=== PATIENT | female | born 1965 | race Caucasian/White ===

== ENCOUNTER 2017-10-19 13:44 | Emergency (ER) | payer MEDICARE, MEDICAID ==
[~2017-10-19] VITALS: Ht 149.9 cm; Wt 75.0 kg
[~2017-10-19 13:44] MED LIST: AMIT-189 PO; BUSP10TA11 PO; DIPH-423 PO; ESCI10TA45 PO; LORA1TAB PO; METH-603 PO; PANT-47 PO; PHE12.5T PR; PROM25TA14 PO; PROM6.25 PO
[2017-10-19] MEDS ORDERED: aspirin 81mg tab.chew PO ONE (15:05)
[2017-10-19] MEDS ORDERED: normal saline 1000ML IV soln IVB ONE ×2 (15:10)
[2017-10-19] MEDS ORDERED: ketorolac trometh. 30mg/ml inj. IV ONE (15:10)
[2017-10-19] MEDS ORDERED: metoclopramide 5 mg/ml inj IV ONE (15:10)
[2017-10-19] MEDS ORDERED: morphine 4 MG/ML inj SYRINge IV ONE (15:10)
[2017-10-19] MEDS ORDERED: diphenhydrAMINE 50 mg/ml inj IV ONE (15:10)
[2017-10-19 15:18] LABS: BASOPHILS % (AUTO) 0.4 % (0-1); EOSINOPHILS # (AUTO) 0.2 X10'3 (0-0.9); EOSINOPHILS % (AUTO) 3.4 % (0-6); HEMATOCRIT 33.8 % (35.0-45.0); HEMOGLOBIN 11.3 g/dl (12.0-16.0); LYMPHOCYTES # (AUTO) 1.5 X10'3 (1.1-4.8); LYMPHOCYTES % (AUTO) 26.9 % (21-51); MEAN CORPUSCULAR HGB CONC 33.6 % (33.0-36.5); MEAN CORPUSCULAR VOLUME 86.3 FL (78-98); MEAN PLATELET VOLUME 7.7 FL (7.4-10.4); MONOCYTES # (AUTO) 0.6 X10'3 (0-0.9); MONOCYTES % (AUTO) 10.5 % (2-12); NEUTROPHILS # (AUTO) 3.4 X10'3 (1.8-7.7); NEUTROPHILS % (AUTO) 58.8 % (42-75); PLATELET COUNT 211 X10'3 (140-440); RED BLOOD COUNT 3.92 X10'6 (4.20-5.60); RED CELL DISTRIBUTION WIDTH 14.7 % (11.5-14.5); WHITE BLOOD COUNT 5.8 X10'3 (4.5-11.0)
[2017-10-19 15:40] LABS: ALANINE AMINOTRANSFERASE 41 U/L (12-78); ALBUMIN 3.1 G/DL (3.4-5.0); ALBUMIN/GLOBULIN RATIO 0.9 (1.1-1.5); ALKALINE PHOSPHATASE 151 IU/L (46-116); ANION GAP 7 (8-16); ASPARTATE AMINO TRANSFERASE 43 U/L (10-37); BILIRUBIN,TOTAL 0.2 MG/DL (0.1-1.0); BLOOD UREA NITROGEN 8 MG/DL (7-18); CALCIUM 8.2 MG/DL (8.5-10.1); CHLORIDE 108 MMOL/L (99-107); GLUCOSE 105 MG/DL (70-104); LIPASE 136 U/L (73-393); MAGNESIUM 2.1 MG/DL (1.5-2.4); POTASSIUM 4.3 MMOL/L (3.5-5.1); SODIUM 143 MMOL/L (135-145); TOTAL CARBON DIOXIDE 27.9 MMOL/L (24-32); TOTAL PROTEIN 6.7 G/DL (6.4-8.2); eGFR > 90 ML/MIN
[2017-10-19 16:32] LABS: CLARITY,URINE CLEAR (Clear); COLOR,URINE YELLOW (Yellow); GLUCOSE, URINE NEGATIVE (Neg); KETONES,URINE NEGATIVE (Neg); LEUKOCYTE ESTERASE ,URINE NEGATIVE (Neg); NITRITES, URINE NEGATIVE (Neg); OCCULT BLOOD,URINE NEGATIVE (Neg); PROTEIN,URINE NEGATIVE (Neg); UROBILINOGEN,URINE 0.2 E.U/dL (0.2-1.0)
[2017-10-19 16:33] LABS: UA COLLECTION TYPE CLN CATCH MIDSTREAM
[2017-10-19] MEDS ORDERED: BENZ-38 PO (17:54)
[2017-10-19] MEDS ORDERED: AZIT-63 PO (17:54)
[2017-10-19] MEDS ORDERED: CefTRIAXone 2gm/D5W 50ml 50 ML IV ONE (17:55)
[2017-10-19] MEDS ORDERED: benzonatate 100mg capsule PO ONE (18:00)
[2017-10-19 18:46] VITALS: BP 139/78
== END 2017-10-19 18:49 | disposition home or self-care (01) ==
LOC: ER 13:45
DX: H66.93 Otitis media, unspecified, bilateral (principal); R10.9 Unspecified abdominal pain; E86.0 Dehydration; F17.210 Nicotine dependence, cigarettes, uncomplicated; F14.10 Cocaine abuse, uncomplicated; F11.10 Opioid abuse, uncomplicated; Z88.0 Allergy status to penicillin; Z88.8 Allergy status to other drugs, medicaments and biological substances; Z88.6 Allergy status to analgesic agent; Z88.1 Allergy status to other antibiotic agents; Z91.030 Bee allergy status
CPT/HCPCS: 36415; 71045; 80053; 81003; 83690; 83735; 83880; 84484; 85025; 87502; 87503; 93005; 96361; 96365; 96375; 99285; J0696; J1200; J1885; J2270; J2765; J7030

== ENCOUNTER 2019-10-04 15:47 | Emergency (ER) | payer MEDICARE, MEDICAID ==
[~2019-10-04] VITALS: Ht 149.9 cm; Wt 26.6 kg
[~2019-10-04 15:47] MED LIST changes: -PHE12.5T PR; +PROM12.512 PR; -PROM6.25 PO; +PROM6.256 PO
[2019-10-04 17:02] LABS: BASOPHILS # (AUTO) 0.1 X10'3 (0-0.2); BASOPHILS % (AUTO) 0.9 % (0-1); EOSINOPHILS # (AUTO) 0.2 X10'3 (0-0.9); EOSINOPHILS % (AUTO) 3.3 % (0-6); HEMATOCRIT 34.4 % (35.0-45.0); HEMOGLOBIN 11.5 g/dl (12.0-16.0); LYMPHOCYTES # (AUTO) 1.9 X10'3 (1.1-4.8); MEAN CORPUSCULAR HEMOGLOBIN 26.3 PG (27.0-31.0); MEAN CORPUSCULAR HGB CONC 33.3 g/dL (33.0-36.5); MEAN CORPUSCULAR VOLUME 78.8 FL (78-98); MEAN PLATELET VOLUME 7.9 FL (7.4-10.4); MONOCYTES # (AUTO) 0.5 X10'3 (0-0.9); MONOCYTES % (AUTO) 8.3 % (2-12); NEUTROPHILS % (AUTO) 59.5 % (42-75); PLATELET COUNT 227 X10'3 (140-440); RED BLOOD COUNT 4.36 X10'6 (4.20-5.60); WHITE BLOOD COUNT 6.6 X10'3 (4.5-11.0)
[2019-10-04 17:27] LABS: ALANINE AMINOTRANSFERASE 36 U/L (12-78); ALBUMIN 3.1 G/DL (3.4-5.0); ALBUMIN/GLOBULIN RATIO 0.8 (1.1-1.5); ALKALINE PHOSPHATASE 162 IU/L (46-116); ANION GAP 6 (8-16); ASPARTATE AMINO TRANSFERASE 24 U/L (10-37); BILIRUBIN,TOTAL 0.2 MG/DL (0.1-1.0); BLOOD UREA NITROGEN 12 MG/DL (7-18); BUN/CREATININE RATIO 21.8 (6.6-38.0); CALCIUM 8.6 MG/DL (8.5-10.1); CHLORIDE 106 MMOL/L (99-107); CREATININE 0.55 MG/DL (0.40-0.90); GLUCOSE 96 MG/DL (70-104); SODIUM 141 MMOL/L (135-145); TOTAL CARBON DIOXIDE 29.4 MMOL/L (24-32); eGFR > 90 ML/MIN
[2019-10-04 17:45] VITALS: BP 139/89
[2019-10-04] MEDS ORDERED: ALBU18HF2 INH (17:51)
== END 2019-10-04 18:02 | disposition home or self-care (01) ==
LOC: ER 15:48
DX: J44.9 Chronic obstructive pulmonary disease, unspecified (principal); F31.9 Bipolar disorder, unspecified; F14.90 Cocaine use, unspecified, uncomplicated; F11.90 Opioid use, unspecified, uncomplicated; Z90.49 Acquired absence of other specified parts of digestive tract; Z90.710 Acquired absence of both cervix and uterus; Z98.890 Other specified postprocedural states; Z56.0 Unemployment, unspecified; Z79.2 Long term (current) use of antibiotics; Z86.19 Personal history of other infectious and parasitic diseases; Z88.0 Allergy status to penicillin; Z72.0 Tobacco use; Z88.5 Allergy status to narcotic agent; Z88.8 Allergy status to other drugs, medicaments and biological substances; Z79.899 Other long term (current) drug therapy
CPT/HCPCS: 36415; 71045; 80053; 84484; 85025; 93005; 99285

== ENCOUNTER 2021-06-04 02:29 | Emergency (ER) | payer MEDICARE, MEDICAID ==
[~2021-06-04] VITALS: Ht 149.9 cm; Wt 68.2 kg
[~2021-06-04 02:29] MED LIST changes: +ALBU18HF2 INH
[2021-06-04 02:37] VITALS: BP 136/94
[2021-06-04] MEDS ORDERED: pantoprazole 40mg Tablet.DR PO STA (03:40)
[2021-06-04 04:39] LABS: BASOPHILS % (AUTO) 0.2 % (0-1); EOSINOPHILS # (AUTO) 0.2 X10'3 (0-0.9); EOSINOPHILS % (AUTO) 3.3 % (0-6); HEMATOCRIT 37.3 % (35.0-45.0); HEMOGLOBIN 12.3 g/dl (12.0-16.0); LYMPHOCYTES # (AUTO) 1.8 X10'3 (1.1-4.8); LYMPHOCYTES % (AUTO) 27.7 % (21-51); MEAN CORPUSCULAR HEMOGLOBIN 27.4 PG (27.0-31.0); MEAN CORPUSCULAR HGB CONC 32.9 g/dL (33.0-36.5); MEAN CORPUSCULAR VOLUME 83.4 FL (78-98); MEAN PLATELET VOLUME 7.5 FL (7.4-10.4); MONOCYTES # (AUTO) 0.6 X10'3 (0-0.9); MONOCYTES % (AUTO) 9.7 % (2-12); NEUTROPHILS # (AUTO) 3.9 X10'3 (1.8-7.7); NEUTROPHILS % (AUTO) 59.1 % (42-75); PLATELET COUNT 259 X10'3 (140-440); RED BLOOD COUNT 4.48 X10'6 (4.20-5.60); RED CELL DISTRIBUTION WIDTH 14.7 % (11.5-14.5); WHITE BLOOD COUNT 6.5 X10'3 (4.5-11.0)
[2021-06-04 04:49] LABS: PARTIAL THROMBOPLASTIN TIME 28 SECONDS (22-32)
[2021-06-04 04:50] LABS: ALANINE AMINOTRANSFERASE 31 U/L (12-78); ALBUMIN 3.4 G/DL (3.4-5.0); ALBUMIN/GLOBULIN RATIO 0.9 (1.1-1.5); ALKALINE PHOSPHATASE 141 IU/L (46-116); ANION GAP 8 (8-16); ASPARTATE AMINO TRANSFERASE 22 U/L (10-37); BILIRUBIN,DIRECT 0.1 MG/DL (0-0.3); BILIRUBIN,TOTAL 0.2 MG/DL (0.1-1.0); BLOOD UREA NITROGEN 14 MG/DL (7-18); BUN/CREATININE RATIO 20.3 (6.6-38.0); CALCIUM 8.7 MG/DL (8.5-10.1); CHLORIDE 106 MMOL/L (99-107); CREATININE 0.69 MG/DL (0.40-0.90); GLUCOSE 103 MG/DL (70-104); LIPASE 76 U/L (73-393); POTASSIUM 4.2 MMOL/L (3.5-5.1); SODIUM 141 MMOL/L (135-145); TOTAL CARBON DIOXIDE 26.6 MMOL/L (24-32); TOTAL PROTEIN 7.3 G/DL (6.4-8.2); eGFR 88 ML/MIN
== END 2021-06-04 07:43 | disposition left against medical advice (07) ==
LOC: ER 02:31
DX: R04.2 Hemoptysis (principal); M54.2 Cervicalgia; F31.9 Bipolar disorder, unspecified; F11.90 Opioid use, unspecified, uncomplicated; F14.90 Cocaine use, unspecified, uncomplicated; Z86.19 Personal history of other infectious and parasitic diseases; Z87.11 Personal history of peptic ulcer disease; Z90.89 Acquired absence of other organs; Z90.49 Acquired absence of other specified parts of digestive tract; Z90.710 Acquired absence of both cervix and uterus; Z98.890 Other specified postprocedural states; Z56.0 Unemployment, unspecified; Z88.1 Allergy status to other antibiotic agents; Z88.0 Allergy status to penicillin; Z88.2 Allergy status to sulfonamides; Z88.5 Allergy status to narcotic agent; Z88.8 Allergy status to other drugs, medicaments and biological substances; Z79.899 Other long term (current) drug therapy
CPT/HCPCS: 36415; 80048; 80076; 83690; 85025; 85610; 85730; 99283

== ENCOUNTER 2021-06-06 11:20 | Emergency (ER) | payer MEDICARE, MEDICAID ==
[~2021-06-06] VITALS: Ht 149.9 cm; Wt 70.5 kg
[2021-06-06] MEDS ORDERED: metoprolol tartrate 50mg tablet PO ONE (12:10)
[2021-06-06 12:37] LABS: BASOPHILS % (AUTO) 0.4 % (0-1); EOSINOPHILS # (AUTO) 0.1 X10'3 (0-0.9); EOSINOPHILS % (AUTO) 1.6 % (0-6); HEMATOCRIT 38.9 % (35.0-45.0); HEMOGLOBIN 12.8 g/dl (12.0-16.0); LYMPHOCYTES % (AUTO) 13.7 % (21-51); MEAN CORPUSCULAR HEMOGLOBIN 27.3 PG (27.0-31.0); MEAN CORPUSCULAR VOLUME 82.8 FL (78-98); MEAN PLATELET VOLUME 7.3 FL (7.4-10.4); MONOCYTES # (AUTO) 0.5 X10'3 (0-0.9); MONOCYTES % (AUTO) 7.3 % (2-12); NEUTROPHILS # (AUTO) 5.7 X10'3 (1.8-7.7); PLATELET COUNT 254 X10'3 (140-440); RED CELL DISTRIBUTION WIDTH 14.5 % (11.5-14.5); WHITE BLOOD COUNT 7.4 X10'3 (4.5-11.0)
[2021-06-06 12:48] LABS: ALANINE AMINOTRANSFERASE 32 U/L (12-78); ALBUMIN 3.6 G/DL (3.4-5.0); ALBUMIN/GLOBULIN RATIO 0.9 (1.1-1.5); ALKALINE PHOSPHATASE 156 IU/L (46-116); ANION GAP 8 (8-16); BILIRUBIN,TOTAL 0.2 MG/DL (0.1-1.0); BLOOD UREA NITROGEN 17 MG/DL (7-18); BUN/CREATININE RATIO 25.8 (6.6-38.0); CALCIUM 8.5 MG/DL (8.5-10.1); CHLORIDE 107 MMOL/L (99-107); CREATININE 0.66 MG/DL (0.40-0.90); GLUCOSE 130 MG/DL (70-104); POTASSIUM 4.2 MMOL/L (3.5-5.1); SODIUM 142 MMOL/L (135-145); TOTAL CARBON DIOXIDE 26.8 MMOL/L (24-32); TOTAL PROTEIN 7.8 G/DL (6.4-8.2); eGFR > 90 ML/MIN
[2021-06-06 12:49] LABS: ASPARTATE AMINO TRANSFERASE 19 U/L (10-37)
[2021-06-06 12:59] LABS: ETHANOL < 0.010 GM/DL (0.0-0.010)
[2021-06-06 15:01] VITALS: BP 129/81
== END 2021-06-06 15:09 | disposition home or self-care (01) ==
LOC: ER 11:21
DX: I10 Essential (primary) hypertension (principal); R20.0 Anesthesia of skin
CPT/HCPCS: 36415; 71045; 80053; 80320; 83880; 84484; 85025; 93005; 99285

== ENCOUNTER 2021-06-29 11:38 | Emergency (ER) | payer MEDICARE, MEDICAID ==
[~2021-06-29] VITALS: Ht 149.9 cm; Wt 65.0 kg
[2021-06-29 12:27] LABS: BASOPHILS % (AUTO) 0.5 % (0-1); EOSINOPHILS # (AUTO) 0.2 X10'3 (0-0.9); EOSINOPHILS % (AUTO) 3.4 % (0-6); LYMPHOCYTES # (AUTO) 1.7 X10'3 (1.1-4.8); LYMPHOCYTES % (AUTO) 26.3 % (21-51); MEAN CORPUSCULAR HEMOGLOBIN 27.2 PG (27.0-31.0); MEAN CORPUSCULAR HGB CONC 32.5 g/dL (33.0-36.5); MEAN CORPUSCULAR VOLUME 83.9 FL (78-98); MEAN PLATELET VOLUME 7.2 FL (7.4-10.4); MONOCYTES # (AUTO) 0.6 X10'3 (0-0.9); MONOCYTES % (AUTO) 8.7 % (2-12); NEUTROPHILS # (AUTO) 3.9 X10'3 (1.8-7.7); NEUTROPHILS % (AUTO) 61.1 % (42-75); PLATELET COUNT 274 X10'3 (140-440); RED BLOOD COUNT 4.41 X10'6 (4.20-5.60); RED CELL DISTRIBUTION WIDTH 15.6 % (11.5-14.5); WHITE BLOOD COUNT 6.4 X10'3 (4.5-11.0)
[2021-06-29 12:43] LABS: ALANINE AMINOTRANSFERASE 28 U/L (12-78); ALBUMIN 3.5 G/DL (3.4-5.0); ALBUMIN/GLOBULIN RATIO 0.9 (1.1-1.5); ALKALINE PHOSPHATASE 123 IU/L (46-116); ANION GAP 10 (8-16); ASPARTATE AMINO TRANSFERASE 21 U/L (10-37); BILIRUBIN,TOTAL 0.2 MG/DL (0.1-1.0); BLOOD UREA NITROGEN 9 MG/DL (7-18); BUN/CREATININE RATIO 14.1 (6.6-38.0); CALCIUM 8.6 MG/DL (8.5-10.1); CHLORIDE 106 MMOL/L (99-107); CREATININE 0.64 MG/DL (0.40-0.90); GLUCOSE 109 MG/DL (70-104); POTASSIUM 3.5 MMOL/L (3.5-5.1); SODIUM 144 MMOL/L (135-145); TOTAL CARBON DIOXIDE 28.5 MMOL/L (24-32); TOTAL PROTEIN 7.4 G/DL (6.4-8.2); eGFR > 90 ML/MIN
[2021-06-29] MEDS ORDERED: ibuprofen tablet 400 MG TABLET PO ONE (14:25)
[2021-06-29 14:58] VITALS: BP 125/77
== END 2021-06-29 15:06 | disposition home or self-care (01) ==
LOC: ER 11:38
DX: R03.0 Elevated blood-pressure reading, without diagnosis of hypertension (principal); R51.9 Headache, unspecified; R11.0 Nausea; Z86.19 Personal history of other infectious and parasitic diseases; Z87.11 Personal history of peptic ulcer disease; Z90.49 Acquired absence of other specified parts of digestive tract; Z90.710 Acquired absence of both cervix and uterus; Z56.0 Unemployment, unspecified; Z88.0 Allergy status to penicillin; Z88.1 Allergy status to other antibiotic agents; Z88.2 Allergy status to sulfonamides; Z88.6 Allergy status to analgesic agent; Z79.899 Other long term (current) drug therapy
CPT/HCPCS: 36415; 70450; 71045; 80053; 83880; 84484; 85025; 93005; 99285

== ENCOUNTER 2022-01-25 21:10 | Inpatient (IN) | payer MEDICARE, MEDICAID ==
[~2022-01-25] VITALS: Ht 149.9 cm; Wt 75.0 kg
[2022-01-25 21:48] LABS: BASOPHILS % (AUTO) 0.4 % (0-1); EOSINOPHILS # (AUTO) 0.2 X10'3 (0-0.9); EOSINOPHILS % (AUTO) 1.6 % (0-6); HEMATOCRIT 35.3 % (35.0-45.0); HEMOGLOBIN 11.2 g/dl (12.0-16.0); LYMPHOCYTES # (AUTO) 1.8 X10'3 (1.1-4.8); LYMPHOCYTES % (AUTO) 18.8 % (21-51); MEAN CORPUSCULAR HEMOGLOBIN 24.8 PG (27.0-31.0); MEAN CORPUSCULAR HGB CONC 31.8 g/dL (33.0-36.5); MEAN CORPUSCULAR VOLUME 77.9 FL (78-98); MEAN PLATELET VOLUME 7.8 FL (7.4-10.4); MONOCYTES # (AUTO) 0.9 X10'3 (0-0.9); MONOCYTES % (AUTO) 9.4 % (2-12); NEUTROPHILS # (AUTO) 6.7 X10'3 (1.8-7.7); NEUTROPHILS % (AUTO) 69.8 % (42-75); PLATELET COUNT 324 X10'3 (140-440); RED BLOOD COUNT 4.53 X10'6 (4.20-5.60); WHITE BLOOD COUNT 9.6 X10'3 (4.5-11.0)
[2022-01-25 21:58] LABS: ALANINE AMINOTRANSFERASE 23 U/L (12-78); ALBUMIN 3.5 G/DL (3.4-5.0); ALBUMIN/GLOBULIN RATIO 0.8 (1.1-1.5); ALKALINE PHOSPHATASE 162 IU/L (46-116); ANION GAP 10 (8-16); ASPARTATE AMINO TRANSFERASE 19 U/L (10-37); BILIRUBIN,TOTAL 0.3 MG/DL (0.1-1.0); BLOOD UREA NITROGEN 11 MG/DL (7-18); BUN/CREATININE RATIO 15.9 (6.6-38.0); CALCIUM 8.4 MG/DL (8.5-10.1); CHLORIDE 102 MMOL/L (99-107); CREATININE 0.69 MG/DL (0.40-0.90); GLUCOSE 92 MG/DL (70-104); LIPASE < 50 U/L (73-393); POTASSIUM 3.1 MMOL/L (3.5-5.1); SODIUM 138 MMOL/L (135-145); TOTAL CARBON DIOXIDE 26.1 MMOL/L (24-32); TOTAL PROTEIN 7.9 G/DL (6.4-8.2); eGFR 88 ML/MIN
[2022-01-25 22:58] LABS: CLARITY,URINE CLEAR (Clear); COLOR,URINE YELLOW (Yellow); GLUCOSE, URINE NEGATIVE (Neg); KETONES,URINE TRACE mg/dl (Neg); LEUKOCYTE ESTERASE ,URINE NEGATIVE (Neg); NITRITES, URINE NEGATIVE (Neg); OCCULT BLOOD,URINE TRACE-INTACT (Neg); PROTEIN,URINE NEGATIVE (Neg); UROBILINOGEN,URINE 0.2 E.U/dL (0.2-1.0)
[2022-01-25 23:01] LABS: URINE HCG NEGATIVE (NEG)
[2022-01-25 23:05] LABS: UA COLLECTION TYPE CLN CATCH MIDSTREAM
[2022-01-25 23:07] LABS: BACTERIA,URINE FEW /HPF (Neg); RBC,URINE 0-2 /HPF (0-2); SQUAMOUS EPITHELIAL CELL,UR FEW /LPF (FEW); WBC,URINE NONE SEEN /HPF (0-4)
[2022-01-25] MEDS ORDERED: normal saline 1000ML IV soln IVB ONE (23:25)
[2022-01-25] MEDS ORDERED: LORazepam 2 mg/ml vial IV ONE (23:25)
[2022-01-25] MEDS ORDERED: ondansetron/PF 4mg/2ml inj IV ONE (23:25)
[2022-01-25] MEDS ORDERED: pantoprazole IV 80 MG in normal saline 100ml IV soln 100 ML IV ONE (23:25)
[2022-01-25] MEDS ORDERED: morphine 4 MG/ML inj SYRINge IV ONE (23:25)
[2022-01-25] MEDS ORDERED: iohexol 300mg/ml 100ml inj. ONE (23:49)
--- NOTE | 2022-01-26 | NUR ---
pt states she sleeps with oxygen 2 L NC at home. pt placed on 2L O2 nc.
[2022-01-26] MEDS: morphine 2 MG/ML inj. syringe IV PRN ×5 (00:08→03:14)
[2022-01-26] MEDS ORDERED: potassium CL 10mEq/100ml bag 100 ML IV PRN (02:05)
[2022-01-26] MEDS ORDERED: magnesium Cl slow-release 64mg tablet PO PRN (02:05)
[2022-01-26] MEDS ORDERED: acetaminophen 650mg rectal suppository RC PRN (02:05)
[2022-01-26] MEDS ORDERED: magnesium 2GM in 50ml NS 50 ML IV PRN (02:05)
[2022-01-26] MEDS ORDERED: diphenhydrAMINE 50 mg/ml inj IV PRN (02:05)
[2022-01-26] MEDS ORDERED: ondansetron 4mg rapidly disintigrating tab PO PRN ×2 (02:05→14:10)
[2022-01-26] MEDS ORDERED: magnesium hydroxide 30ml (MOM) UD suspension PO PRN (02:05)
[2022-01-26] MEDS ORDERED: diphenhydrAMINE 25mg capsule PO PRN ×2 (02:05→14:10)
[2022-01-26] MEDS ORDERED: magnesium 4gm in 100ml NS 100 ML IV PRN (02:05)
[2022-01-26] MEDS ORDERED: acetaminophen 325mg tablet PO PRN ×2 (02:05)
[2022-01-26] MEDS ORDERED: POTASSIUM BICARB 20meq eff tab 20 MEQ TABLET.EFF PO PRN (02:05)
[2022-01-26] MEDS ORDERED: mag hydrox/Alum hydrox/simeth 30ml oral suspension PO PRN (02:05)
[2022-01-26] MEDS ORDERED: bisacodyl 10mg suppository rectal RC PRN (02:05)
[2022-01-26] MEDS: ondansetron/PF 4mg/2ml inj IV PRN ×3 (02:49→19:35)
[2022-01-26] MEDS ORDERED: doxycycline inj 100 MG in normal saline 100ml IV soln 100 ML IV SCH (03:00)
[2022-01-26 03:05] LABS: MAGNESIUM 1.8 MG/DL (1.5-2.4); PHOSPHORUS 3.9 MG/DL (2.3-4.5); POTASSIUM 3.2 MMOL/L (3.5-5.1)
--- NOTE | 2022-01-26 03:25 | NUR ---
SPOKE TO DR NAIK OVER THE PHONE PT IS STILL NAUSEATED WITH ZOFRAN. DR NAIK GAVE A TELEPHONE ORDER FOR 8 MG ZOFRAN IV NOW; IF THIS INTERVENTION IS INEFFECTIVE, HE GIVE TELEPHONE ORDER FOR 1 MG ATIVAN IV. ORDER REPEATED BACK FOR ACCURACY.
[2022-01-26] MEDS ORDERED: ondansetron/PF 4mg/2ml inj IV ONE (03:30)
[2022-01-26 04:07] LABS: APTT 26 SECONDS (22-32)
[2022-01-26] MEDS: potassium Cl 20mEq in NS 1,000 ML IV SCH ×3 (04:29→20:36)
[2022-01-26] MEDS: HYDROmorphone inj. 0.5 MG/0.5 ML DISP.SYRIN IV PRN ×4 (05:31→20:32)
[2022-01-26] MEDS: K and/or MAG REPLACEMENT MC SCH ×2 (07:14→20:00)
[2022-01-26] MEDS ORDERED: docusate sod 100mg capsule PO SCH (08:00)
[2022-01-26] MEDS: POTASSIUM BICARB 20meq eff tab 20 MEQ TABLET.EFF PO PRN ×2 (08:30→20:18)
[2022-01-26] MEDS: pantoprazole 40MG/NS 100ML BAG 100 ML IV SCH (09:54)
[2022-01-26] MEDS ORDERED: GABA-530 PO (13:11)
[2022-01-26] MEDS ORDERED: ATRIN PO (13:11)
[2022-01-26] MEDS ORDERED: LORA-268 PO (13:11)
[2022-01-26] MEDS ORDERED: IBUP-1986 PO (13:11)
[2022-01-26] MEDS ORDERED: OMEP20CA16 PO (13:11)
[2022-01-26] MEDS ORDERED: HYDR-3973 PO (13:11)
[2022-01-26] MEDS ORDERED: FLUT15.87 NAS (13:11)
[2022-01-26] MEDS ORDERED: BUSP30TA3 PO (13:11)
[2022-01-26] MEDS ORDERED: ONDA4TAB12 PO (13:11)
[2022-01-26] MEDS ORDERED: AMIT10TA6 PO (13:11)
[2022-01-26] MEDS ORDERED: ATOR10TA70 PO (13:11)
[2022-01-26] MEDS ORDERED: DOCU100C40 PO (13:13)
[2022-01-26] MEDS ORDERED: CLON0.2T PO (13:24)
[2022-01-26] MEDS ORDERED: ESTR1TAB19 PO (13:24)
[2022-01-26] MEDS ORDERED: ESCI20TA39 PO (13:30)
[2022-01-26] MEDS ORDERED: insulin Lispro (HumaLOG) vial - multi-dose SQ SCH (14:10)
[2022-01-26] MEDS ORDERED: dextrose 50%-water 50ml dispensing syringe IV PRN ×2 (14:10)
[2022-01-26] MEDS ORDERED: MESSAGE TO PHARMACY PO ONE (14:10)
[2022-01-26] MEDS ORDERED: fluticasone nasal spray 16GM bottle NS PRN (14:10)
[2022-01-26] MEDS ORDERED: proMETHazine 25mg tablet PO PRN (14:10)
[2022-01-26] MEDS ORDERED: hydrALAZINE 20mg/ml inj. IV PRN (14:10)
[2022-01-26] MEDS ORDERED: proCHLORperazine 10 MG/2 ml inj IV PRN (14:10)
[2022-01-26] MEDS ORDERED: DEXTROSE 15 GM of carb/4 tabs (each vial/BOTTLE has 4 tablets) PO PRN ×2 (14:10)
[2022-01-26] MEDS ORDERED: glucagon, human recombinant 1mg kit SUBCUT PRN (14:10)
[2022-01-26 15:14] VITALS: BP 150/97
--- NOTE | 2022-01-26 15:15 | NUR ---
Received pt from ED. Pt holding in unit until bed available on [facility].
--- NOTE | 2022-01-26 15:46 | NUR ---
Respiratory at bedside.
[2022-01-26] MEDS: ipratropium 0.5 MG/2.5ML nebule NEB SCH ×2 (15:47→19:55)
--- NOTE | 2022-01-26 16:15 | NUR ---
DC right AC IV, cannula intact. No s/s of bleeding or infection.
--- NOTE | 2022-01-26 17:44 | NUR ---
Attempted to call report, Saba refused to take report. States that she will have night clerk nurse call me back for report. Addendum: 01/26/22 at 1844 by Bina Gallegos RN Saba Kinney RN
[2022-01-26] MEDS: methadone 10mg tablet PO SCH ×2 (18:10→22:47)
--- NOTE | 2022-01-26 18:20 | NUR ---
Problems reprioritized. Patient report given, questions answered & plan of care reviewed with Lorrie NUNEZ.
[2022-01-26 19:56] VITALS: BP 181/80
[2022-01-26] MEDS: doxycycline inj 100 MG in normal saline 100ml IV soln 100 ML IV SCH (20:14)
[2022-01-26] MEDS: docusate sod 100mg capsule PO SCH (20:17)
[2022-01-26] MEDS: amitriptyline 10mg tablet PO SCH (20:17)
[2022-01-26] MEDS: cloNIDine 0.1 mg tablet PO SCH (20:17)
[2022-01-26] MEDS: ibuprofen tablet 400 MG TABLET PO SCH (20:18)
[2022-01-26] MEDS: insulin glargine (Lantus) pen - multi-dose SQ SCH (20:35)
[2022-01-26] MEDS ORDERED: temazepam 15mg capsule PO PRN (21:00)
[2022-01-26 22:00] VITALS: BP 121/82
[2022-01-27 02:00] VITALS: BP 101/59
--- NOTE | 2022-01-27 06:09 | NUR ---
Problems reprioritized. Patient report given, questions answered & plan of care reviewed with Vlad NUNEZ. Addendum: 01/27/22 at 0609 by Lorrie Sequeira RN Amended: Links added.
[2022-01-27] MEDS: ipratropium 0.5 MG/2.5ML nebule NEB SCH ×4 (07:11→19:07)
[2022-01-27] MEDS: ondansetron/PF 4mg/2ml inj IV PRN ×2 (07:25→16:49)
[2022-01-27] MEDS: pantoprazole 40MG/NS 100ML BAG 100 ML IV SCH (07:25)
[2022-01-27] MEDS: ESCITALOPRAM OXALATE 5 MG TABLET PO SCH (07:25)
[2022-01-27] MEDS: ibuprofen tablet 400 MG TABLET PO SCH ×3 (07:26→20:36)
[2022-01-27] MEDS: cloNIDine 0.1 mg tablet PO SCH ×2 (07:26→19:29)
[2022-01-27] MEDS: HYDROcodone/acetaminophen 10/325mg tab PO PRN ×3 (07:26→19:32)
[2022-01-27] MEDS: methadone 10mg tablet PO SCH ×4 (07:27→20:36)
[2022-01-27] MEDS: atorvastatin 10mg tablet PO SCH (07:27)
[2022-01-27] MEDS: docusate sod 100mg capsule PO SCH ×2 (07:27→19:29)
[2022-01-27] MEDS: pantoprazole 40mg Tablet.DR PO SCH (07:27)
[2022-01-27] MEDS: estradiol 1mg tablet PO SCH (07:28)
[2022-01-27] MEDS: doxycycline inj 100 MG in normal saline 100ml IV soln 100 ML IV SCH ×2 (07:28→19:29)
[2022-01-27] MEDS: busPIRone 15mg tablet PO SCH (07:28)
--- NOTE | 2022-01-27 07:30 | NUR ---
Diabetes consult: Noted A1c 7 though pt does not appear to have any DM hx in EMR. Pt will need official dx by prior to RD education. Addendum: 01/27/22 at [address] Amended: Links added.
[2022-01-27 07:41] LABS: BASOPHILS % (AUTO) 0.4 % (0-1); EOSINOPHILS # (AUTO) 0.2 X10'3 (0-0.9); EOSINOPHILS % (AUTO) 2.8 % (0-6); HEMATOCRIT 29.5 % (35.0-45.0); HEMOGLOBIN 9.4 g/dl (12.0-16.0); LYMPHOCYTES # (AUTO) 1.5 X10'3 (1.1-4.8); LYMPHOCYTES % (AUTO) 19.7 % (21-51); MEAN CORPUSCULAR HEMOGLOBIN 25.1 PG (27.0-31.0); MEAN CORPUSCULAR VOLUME 78.5 FL (78-98); MEAN PLATELET VOLUME 7.6 FL (7.4-10.4); MONOCYTES # (AUTO) 0.9 X10'3 (0-0.9); MONOCYTES % (AUTO) 11.6 % (2-12); NEUTROPHILS # (AUTO) 4.9 X10'3 (1.8-7.7); NEUTROPHILS % (AUTO) 65.5 % (42-75); PLATELET COUNT 255 X10'3 (140-440); RED BLOOD COUNT 3.75 X10'6 (4.20-5.60); RED CELL DISTRIBUTION WIDTH 15.8 % (11.5-14.5); WHITE BLOOD COUNT 7.5 X10'3 (4.5-11.0)
--- NOTE | 2022-01-27 07:49 | NUR ---
Page Sent promotional table spacer PAGER ID: [phone] MESSAGE: [place] JOSSY [place] [id number] CRITICAL BLOOD GLUCOSE OF 45 CONSIDER A CHANGE IN FLUID ORDERS? THANK YOU, JONELLE
[2022-01-27 07:56] LABS: ALANINE AMINOTRANSFERASE 22 U/L (12-78); ALBUMIN 2.5 G/DL (3.4-5.0); ALBUMIN/GLOBULIN RATIO 0.7 (1.1-1.5); ALKALINE PHOSPHATASE 140 IU/L (46-116); ANION GAP 9 (8-16); ASPARTATE AMINO TRANSFERASE 19 U/L (10-37); BILIRUBIN,TOTAL 0.3 MG/DL (0.1-1.0); BLOOD UREA NITROGEN 11 MG/DL (7-18); BUN/CREATININE RATIO 22.9 (6.6-38.0); CHLORIDE 109 MMOL/L (99-107); CREATININE 0.48 MG/DL (0.40-0.90); GLUCOSE 55 MG/DL (70-104); POTASSIUM 3.8 MMOL/L (3.5-5.1); SODIUM 142 MMOL/L (135-145); TOTAL CARBON DIOXIDE 24.1 MMOL/L (24-32); TOTAL PROTEIN 6.2 G/DL (6.4-8.2); eGFR > 90 ML/MIN
[2022-01-27] MEDS: K and/or MAG REPLACEMENT MC SCH ×2 (08:00→19:36)
[2022-01-27] MEDS: potassium Cl 20mEq in NS 1,000 ML IV SCH (08:05)
[2022-01-27] MEDS: LORazepam 0.5 MG tablet PO PRN ×2 (09:09→21:35)
[2022-01-27] MEDS: potassium CL 20mEq in D5-1/2NS 1,000 ML IV SCH ×2 (09:43→19:32)
[2022-01-27 10:00] VITALS: BP 148/94
[2022-01-27 19:00] VITALS: BP 114/63
[2022-01-27] MEDS: amitriptyline 10mg tablet PO SCH (20:36)
[2022-01-27] MEDS: insulin glargine (Lantus) pen - multi-dose SQ SCH (21:00)
[2022-01-27 22:00] VITALS: BP 143/54
[2022-01-27] MEDS: HYDROmorphone inj. 0.5 MG/0.5 ML DISP.SYRIN IV PRN (22:56)
[2022-01-28] MEDS: potassium CL 20mEq in D5-1/2NS 1,000 ML IV SCH ×2 (05:15→14:20)
[2022-01-28] MEDS: HYDROmorphone inj. 0.5 MG/0.5 ML DISP.SYRIN IV PRN (05:52)
[2022-01-28 06:00] VITALS: BP 128/80
--- NOTE | 2022-01-28 06:41 | NUR ---
Patient in room [facility]TH[facility] 4013. I have received report from Lorrie NUNEZ and had the opportunity to ask questions and assume patient care.
[2022-01-28] MEDS: ipratropium 0.5 MG/2.5ML nebule NEB SCH ×2 (07:00→11:49)
[2022-01-28] MEDS: atorvastatin 10mg tablet PO SCH (07:17)
[2022-01-28] MEDS: ESCITALOPRAM OXALATE 5 MG TABLET PO SCH (07:17)
[2022-01-28] MEDS: ibuprofen tablet 400 MG TABLET PO SCH ×2 (07:17→12:11)
[2022-01-28] MEDS: pantoprazole 40mg Tablet.DR PO SCH (07:17)
[2022-01-28] MEDS: methadone 10mg tablet PO SCH ×2 (07:18→12:11)
[2022-01-28] MEDS: estradiol 1mg tablet PO SCH (07:18)
[2022-01-28] MEDS: docusate sod 100mg capsule PO SCH (07:18)
[2022-01-28] MEDS: busPIRone 15mg tablet PO SCH (07:18)
[2022-01-28] MEDS: cloNIDine 0.1 mg tablet PO SCH (07:20)
[2022-01-28] MEDS: HYDROcodone/acetaminophen 10/325mg tab PO PRN (07:30)
[2022-01-28 07:58] LABS: BASOPHILS % (AUTO) 0.5 % (0-1); EOSINOPHILS # (AUTO) 0.3 X10'3 (0-0.9); HEMATOCRIT 30.1 % (35.0-45.0); HEMOGLOBIN 9.8 g/dl (12.0-16.0); LYMPHOCYTES # (AUTO) 1.2 X10'3 (1.1-4.8); LYMPHOCYTES % (AUTO) 14.1 % (21-51); MEAN CORPUSCULAR HEMOGLOBIN 25.4 PG (27.0-31.0); MEAN CORPUSCULAR HGB CONC 32.4 g/dL (33.0-36.5); MEAN CORPUSCULAR VOLUME 78.5 FL (78-98); MEAN PLATELET VOLUME 7.7 FL (7.4-10.4); MONOCYTES # (AUTO) 0.9 X10'3 (0-0.9); MONOCYTES % (AUTO) 11.6 % (2-12); NEUTROPHILS # (AUTO) 5.7 X10'3 (1.8-7.7); NEUTROPHILS % (AUTO) 69.8 % (42-75); PLATELET COUNT 266 X10'3 (140-440); RED BLOOD COUNT 3.84 X10'6 (4.20-5.60); RED CELL DISTRIBUTION WIDTH 15.8 % (11.5-14.5); WHITE BLOOD COUNT 8.2 X10'3 (4.5-11.0)
[2022-01-28] MEDS: K and/or MAG REPLACEMENT MC SCH (08:00)
[2022-01-28] MEDS: pantoprazole 40MG/NS 100ML BAG 100 ML IV SCH (08:19)
[2022-01-28 08:55] LABS: ALANINE AMINOTRANSFERASE 25 U/L (12-78); ALBUMIN 2.5 G/DL (3.4-5.0); ALBUMIN/GLOBULIN RATIO 0.6 (1.1-1.5); ALKALINE PHOSPHATASE 158 IU/L (46-116); AMYLASE 18 U/L (25-115); ANION GAP 9 (8-16); ASPARTATE AMINO TRANSFERASE 25 U/L (10-37); BILIRUBIN,TOTAL 0.2 MG/DL (0.1-1.0); BLOOD UREA NITROGEN 8 MG/DL (7-18); CALCIUM 8.2 MG/DL (8.5-10.1); CHLORIDE 108 MMOL/L (99-107); CREATININE 0.47 MG/DL (0.40-0.90); FERRITIN 37 NG/ML (8-252); GLUCOSE 111 MG/DL (70-104); LIPASE 57 U/L (73-393); POTASSIUM 3.9 MMOL/L (3.5-5.1); SODIUM 140 MMOL/L (135-145); TOTAL CARBON DIOXIDE 23.5 MMOL/L (24-32); TOTAL PROTEIN 6.5 G/DL (6.4-8.2); eGFR > 90 ML/MIN
[2022-01-28] MEDS: doxycycline inj 100 MG in normal saline 100ml IV soln 100 ML IV SCH (08:57)
[2022-01-28 09:28] LABS: IRON 27 UG/DL (49-151)
[2022-01-28 09:29] LABS: % IRON SATURATION 10 % (11-46); TOTAL IRON BINDING CAPACITY 273 UG/DL (259-388)
[2022-01-28 10:00] VITALS: BP 124/71
[2022-01-28 11:44] LABS: OCCULT BLOOD STOOL POSITIVE (Neg)
[2022-01-28] MEDS ORDERED: LACT1CAP26 PO (12:20)
[2022-01-28] MEDS ORDERED: DOXY-243 PO (12:20)
[2022-01-28] MEDS ORDERED: METR-159 PO (12:20)
--- NOTE | 2022-01-28 15:16 | NUR ---
Patient discharged home with friend. Discharge information was provided to patient who verbalized understanding. Staff assist patient to vehicle with all belonging.
--- NOTE | 2022-01-28 17:30 | NUR ---
MANAGER STRATEGIC DEVELOPMENT documentation: I have reviewed and agree with all interventions, assessments performed and documented by Erica Kelly LVN.
[2022-01-31] MEDS ORDERED: DICY20TA17 PO (17:55)
== END 2022-01-28 15:05 | disposition home health service (06) | DRG 386 ==
LOC: ER 21:12 → ED HOLD 01-26 02:08 → ORTHO 4S 01-26 18:20
PROVIDERS: ADMIT Family Medicine; ATTEND Internal Medicine
DX: K51.50 Left sided colitis without complications (principal); J96.10 Chronic respiratory failure, unspecified whether with hypoxia or hypercapnia; K86.1 Other chronic pancreatitis; B19.20 Unspecified viral hepatitis C without hepatic coma; E87.6 Hypokalemia; E86.0 Dehydration; R82.4 Acetonuria; G89.4 Chronic pain syndrome; I10 Essential (primary) hypertension; E16.2 Hypoglycemia, unspecified; D64.9 Anemia, unspecified; F17.210 Nicotine dependence, cigarettes, uncomplicated; F31.9 Bipolar disorder, unspecified; J44.9 Chronic obstructive pulmonary disease, unspecified; Z88.5 Allergy status to narcotic agent; Z88.8 Allergy status to other drugs, medicaments and biological substances; Z88.2 Allergy status to sulfonamides; Z90.49 Acquired absence of other specified parts of digestive tract; Z90.710 Acquired absence of both cervix and uterus; Z56.0 Unemployment, unspecified; Z99.81 Dependence on supplemental oxygen; Z79.899 Other long term (current) drug therapy; Z87.11 Personal history of peptic ulcer disease; Z71.6 Tobacco abuse counseling; Z76.5 Malingerer [conscious simulation]
CPT/HCPCS: 36415; 74177; 80053; 81001; 81025; 82150; 82272; 82607; 82728; 82948; 83036; 83540; 83550; 83605; 83690; 83735; 83880; 84100; 84132; 84443; 85025; 85610; 85730; 87040; 87081; 94640; 94760; 99285; A4615; C9113; G0378; J0780; J1170; J1815; J2060; J2270; J2405; J3480; J3490; J7030; J7120; Q9967

== ENCOUNTER 2022-12-25 18:32 | Emergency (ER) | payer MEDICARE, MEDICAID ==
[~2022-12-25] VITALS: Ht 149.9 cm; Wt 71.2 kg
[~2022-12-25 18:32] MED LIST changes: -ALBU18HF2 INH; +ALBU18HF2 PO; -AMIT-189 PO; +AMIT10TA6 PO; +ATRIN PO; -BUSP10TA11 PO; +BUSP30TA2 PO; +CLON0.2T PO; +CLOT30CR19 TP; +DICY20TA17 PO; +DOCU100C40 PO; -ESCI10TA45 PO; +ESCI20TA39 PO; +ESTR1TAB19 PO; +FLUT12AE5 PO; +FLUT15.87 NAS; +HYDR-3973 PO; +IBUP-1986 PO; +LACT1CAP26 PO; +LIPA1CAP18 PO; +LORA-268 PO; -LORA1TAB PO; +NYST30CR34 TOP; +OMEP20CA16 PO; -PANT-47 PO; -PROM12.512 PR; -PROM6.256 PO
[2022-12-25 19:03] LABS: URINE HCG NEGATIVE (NEG)
[2022-12-25 19:08] LABS: CLARITY,URINE CLEAR (Clear); COLOR,URINE YELLOW (Yellow); GLUCOSE, URINE NEGATIVE (Neg); KETONES,URINE NEGATIVE (Neg); LEUKOCYTE ESTERASE ,URINE NEGATIVE (Neg); NITRITES, URINE NEGATIVE (Neg); OCCULT BLOOD,URINE TRACE-INTACT (Neg); PH,URINE 6.5 (4.8-8.0); PROTEIN,URINE NEGATIVE (Neg); UROBILINOGEN,URINE 0.2 E.U/dL (0.2-1.0)
[2022-12-25 19:12] LABS: UA COLLECTION TYPE CLN CATCH MIDSTREAM
[2022-12-25 19:15] LABS: BACTERIA,URINE FEW /HPF (Neg); MUCUS STRANDS NONE SEEN /LPF (Neg); RBC,URINE 0-2 /HPF (0-2); SQUAMOUS EPITHELIAL CELL,UR MANY /LPF (FEW); WBC,URINE 0-4 /HPF (0-4)
[2022-12-25 19:16] LABS: BASOPHILS % (AUTO) 0.4 % (0-1); EOSINOPHILS # (AUTO) 0.1 X10'3 (0-0.9); EOSINOPHILS % (AUTO) 1.4 % (0-6); HEMATOCRIT 43.4 % (35.0-45.0); HEMOGLOBIN 14.9 g/dl (12.0-16.0); LYMPHOCYTES # (AUTO) 1.3 X10'3 (1.1-4.8); LYMPHOCYTES % (AUTO) 16.1 % (21-51); MEAN CORPUSCULAR HEMOGLOBIN 30.7 PG (27.0-31.0); MEAN CORPUSCULAR HGB CONC 34.2 g/dL (33.0-36.5); MEAN CORPUSCULAR VOLUME 89.7 FL (78-98); MEAN PLATELET VOLUME 7.1 FL (7.4-10.4); MONOCYTES # (AUTO) 0.5 X10'3 (0-0.9); NEUTROPHILS # (AUTO) 6.3 X10'3 (1.8-7.7); NEUTROPHILS % (AUTO) 76.1 % (42-75); PLATELET COUNT 230 X10'3 (140-440); RED BLOOD COUNT 4.84 X10'6 (4.20-5.60); RED CELL DISTRIBUTION WIDTH 12.9 % (11.5-14.5); WHITE BLOOD COUNT 8.3 X10'3 (4.5-11.0)
[2022-12-25 19:30] LABS: ALANINE AMINOTRANSFERASE 30 U/L (12-78); ALBUMIN 4.1 G/DL (3.4-5.0); ALBUMIN/GLOBULIN RATIO 1.1 (1.1-1.5); ALKALINE PHOSPHATASE 130 IU/L (46-116); ANION GAP 7 (8-16); ASPARTATE AMINO TRANSFERASE 19 U/L (10-37); BILIRUBIN,TOTAL 0.4 MG/DL (0.1-1.0); BLOOD UREA NITROGEN 10 MG/DL (7-18); BUN/CREATININE RATIO 13.5 (10.0-20.0); CALCIUM 9.1 MG/DL (8.5-10.1); CHLORIDE 104 MMOL/L (99-107); CREATININE 0.74 MG/DL (0.40-0.90); GLUCOSE 124 MG/DL (70-104); LIPASE < 50 U/L (73-393); POTASSIUM 3.5 MMOL/L (3.5-5.1); SODIUM 139 MMOL/L (135-145); TOTAL PROTEIN 7.7 G/DL (6.4-8.2); eGFR 81 ML/MIN
[2022-12-25 19:57] VITALS: BP 151/93
[2022-12-25] MEDS ORDERED: ondansetron/PF 4mg/2ml inj IV ONE (21:05)
[2022-12-25] MEDS ORDERED: normal saline 1000ML IV soln IVB ONE ×2 (21:05)
[2022-12-25] MEDS ORDERED: pantoprazole 40mg IV 80 MG in normal saline 100ml IV soln 100 ML IV ONE (21:05)
[2022-12-25] MEDS ORDERED: LORazepam 2 mg/ml vial IV ONE ×2 (21:05→22:55)
[2022-12-25] MEDS: morphine 2 MG/ML inj. syringe IV PRN ×2 (21:39→23:42)
--- NOTE | 2022-12-25 23:49 | NUR ---
IV DC'D PT BEING DISCHARGED DRESSING APPLIED
== END 2022-12-25 23:51 | disposition home or self-care (01) ==
LOC: ER 18:33
DX: K86.1 Other chronic pancreatitis (principal); F31.9 Bipolar disorder, unspecified; F17.200 Nicotine dependence, unspecified, uncomplicated; Z88.0 Allergy status to penicillin; Z88.1 Allergy status to other antibiotic agents; Z88.2 Allergy status to sulfonamides; Z91.018 Allergy to other foods; Z90.49 Acquired absence of other specified parts of digestive tract; Z98.890 Other specified postprocedural states; Z90.710 Acquired absence of both cervix and uterus
CPT/HCPCS: 36415; 80053; 81001; 81025; 83690; 85025; 96361; 96365; 96375; 96376; 99284; C9113; J2060; J2270; J2405; J3490; J7030; J7040

== ENCOUNTER 2023-02-11 13:46 | Emergency (ER) | payer MEDICARE, MEDICAID ==
[~2023-02-11] VITALS: Ht 149.9 cm; Wt 65.9 kg
[2023-02-11] MEDS ORDERED: normal saline 1000ml 1,000 ML IV ONE (14:25)
[2023-02-11] MEDS ORDERED: normal saline 1000ML IV soln IVB ONE (14:25)
[2023-02-11] MEDS ORDERED: morphine 2 MG/ML inj. syringe IV PRN (14:25)
[2023-02-11] MEDS ORDERED: ketorolac tromethamine 15mg/ml inj. IV ONE (14:25)
[2023-02-11 14:53] LABS: ALANINE AMINOTRANSFERASE 40 U/L (12-78); ALBUMIN 3.9 G/DL (3.4-5.0); ALKALINE PHOSPHATASE 158 IU/L (46-116); ANION GAP 10 (8-16); ASPARTATE AMINO TRANSFERASE 30 U/L (10-37); BILIRUBIN,TOTAL 0.5 MG/DL (0.1-1.0); BLOOD UREA NITROGEN 10 MG/DL (7-18); BUN/CREATININE RATIO 15.2 (10.0-20.0); CHLORIDE 100 MMOL/L (99-107); CREATININE 0.66 MG/DL (0.40-0.90); ETHANOL < 0.010 GM/DL (0.0-0.010); GLUCOSE 133 MG/DL (70-104); LIPASE 53 U/L (73-393); MAGNESIUM 1.8 MG/DL (1.5-2.4); POTASSIUM 3.4 MMOL/L (3.5-5.1); SODIUM 136 MMOL/L (135-145); TOTAL CARBON DIOXIDE 25.8 MMOL/L (24-32); TOTAL PROTEIN 7.7 G/DL (6.4-8.2); eGFR > 90 ML/MIN
[2023-02-11] MEDS ORDERED: cloNIDine 0.2 MG/24 HR patch (7 day patch) TD ONE (15:05)
[2023-02-11] MEDS ORDERED: LORazepam 2 mg/ml vial IV ONE (15:05)
[2023-02-11 15:06] LABS: URINE AMPHETAMINE SCREEN NEGATIVE (Neg); URINE BARBITUATE SCREEN NEGATIVE (Neg); URINE BENZODIAZEPINES SCREEN POSITIVE (Neg); URINE CANNABINOID SCREEN NEGATIVE (Neg); URINE COCAINE SCREEN NEGATIVE (Neg); URINE METHADONE SCREEN POSITIVE (Neg); URINE OPIATE SCREEN POSITIVE (Neg); URINE PHENCYCLIDINE SCREEN POSITIVE (Neg)
[2023-02-11 15:14] LABS: BASOPHILS % (AUTO) 0.5 % (0-1); EOSINOPHILS # (AUTO) 0.1 X10'3 (0-0.9); EOSINOPHILS % (AUTO) 0.9 % (0-6); HEMATOCRIT 37.4 % (35.0-45.0); HEMOGLOBIN 12.9 g/dl (12.0-16.0); LYMPHOCYTES # (AUTO) 0.6 X10'3 (1.1-4.8); LYMPHOCYTES % (AUTO) 7.5 % (21-51); MEAN CORPUSCULAR HGB CONC 34.4 g/dL (33.0-36.5); MEAN CORPUSCULAR VOLUME 90.4 FL (78-98); MONOCYTES # (AUTO) 0.4 X10'3 (0-0.9); MONOCYTES % (AUTO) 5.4 % (2-12); NEUTROPHILS # (AUTO) 6.5 X10'3 (1.8-7.7); NEUTROPHILS % (AUTO) 85.7 % (42-75); PLATELET COUNT 227 X10'3 (140-440); RED BLOOD COUNT 4.14 X10'6 (4.20-5.60); RED CELL DISTRIBUTION WIDTH 12.7 % (11.5-14.5); WHITE BLOOD COUNT 7.6 X10'3 (4.5-11.0)
[2023-02-11] MEDS ORDERED: ONDA4TAB12 PO (16:19)
[2023-02-11 16:39] VITALS: BP 168/88; PULSE 97; RESP 18; O2SAT 92
--- NOTE | 2023-02-11 16:44 | NUR ---
PT IS REQUESTING TO STAY IN ROOM #2 UNTIL HER TRANSPORTATION ARRIVES. RN NOTIFIED MACHINE SHOP WORKER. PT TRANSPORTATION SHOULD ARRIVE IN 15 MINS.
== END 2023-02-11 16:54 | disposition home or self-care (01) ==
LOC: ER 13:48
DX: R10.9 Unspecified abdominal pain (principal); G89.29 Other chronic pain; F16.10 Hallucinogen abuse, uncomplicated; R51.9 Headache, unspecified; F31.9 Bipolar disorder, unspecified; Z88.1 Allergy status to other antibiotic agents; Z91.018 Allergy to other foods; Z88.0 Allergy status to penicillin; Z88.8 Allergy status to other drugs, medicaments and biological substances; Z79.899 Other long term (current) drug therapy; Z79.2 Long term (current) use of antibiotics; Z90.49 Acquired absence of other specified parts of digestive tract; Z90.710 Acquired absence of both cervix and uterus; Z56.0 Unemployment, unspecified
CPT/HCPCS: 36415; 80053; 80305; 80320; 83690; 83735; 83880; 84484; 85025; 93005; 96361; 96374; 96375; 99284; J1885; J2060; J2270; J7030

== ENCOUNTER 2023-09-17 19:11 | Emergency (ER) | payer MEDICARE, MEDICAID ==
[~2023-09-17] VITALS: Ht 149.9 cm; Wt 65.9 kg
[~2023-09-17 19:11] MED LIST changes: +ONDA4TAB12 PO
[2023-09-17 19:17] VITALS: BP 153/88; PULSE 96; TEMP 98; O2SAT 97
[2023-09-17] MEDS ORDERED: CEFD300C3 PO (20:43)
[2023-09-17] MEDS: diazepam inj 5 MG/ML inj. IM ONE (21:03)
[2023-09-17 21:21] VITALS: RESP 16
[2023-09-17] MEDS: ketorolac trometh inj. 60 MG/2 ML VIAL IM ONE (21:21)
[2023-09-17 21:31] LABS: BILIRUBIN,URINE MODERATE (Neg); CLARITY,URINE SLIGHTLY CLOUDY (Clear); COLOR,URINE AMBER (Yellow); GLUCOSE, URINE NEGATIVE (Neg); KETONES,URINE TRACE mg/dl (Neg); LEUKOCYTE ESTERASE ,URINE NEGATIVE (Neg); NITRITES, URINE NEGATIVE (Neg); OCCULT BLOOD,URINE TRACE-INTACT (Neg); PH,URINE 5.5 (4.8-8.0); PROTEIN,URINE NEGATIVE (Neg); UROBILINOGEN,URINE 0.2 E.U/dL (0.2-1.0)
[2023-09-17 21:35] LABS: UA COLLECTION TYPE CLN CATCH MIDSTREAM
[2023-09-17 21:47] LABS: BACTERIA,URINE FEW /HPF (Neg); MUCUS STRANDS MANY /LPF (Neg); RBC,URINE NONE SEEN /HPF (0-2); SQUAMOUS EPITHELIAL CELL,UR MANY /LPF (FEW); WBC,URINE NONE SEEN /HPF (0-4)
== END 2023-09-17 21:28 | disposition home or self-care (01) ==
LOC: ER 19:12
DX: T50.905A Adverse effect of unspecified drugs, medicaments and biological substances, initial encounter (principal); F31.9 Bipolar disorder, unspecified; Z59.00 Homelessness unspecified; Z79.899 Other long term (current) drug therapy; Z79.1 Long term (current) use of non-steroidal anti-inflammatories (NSAID); Z79.2 Long term (current) use of antibiotics
CPT/HCPCS: 81001; 96372; 99284; J1885; J3360

== ENCOUNTER 2023-12-13 12:58 | Emergency (ER) | payer MEDICARE, MEDICAID ==
[~2023-12-13] VITALS: Ht 149.9 cm; Wt 67.7 kg
[2023-12-13 13:07] VITALS: TEMP 99.7
[2023-12-13] MEDS: normal saline 1000ml 1,000 ML IV ONE (14:40)
[2023-12-13] MEDS ORDERED: normal saline 1000ML IV soln IV ONE (14:40)
[2023-12-13 15:44] LABS: BASOPHILS % (AUTO) 0.2 % (0-1); EOSINOPHILS % (AUTO) 0.1 % (0-6); HEMATOCRIT 43.1 % (35.0-45.0); HEMOGLOBIN 14.8 g/dl (12.0-16.0); LYMPHOCYTES # (AUTO) 1.2 X10'3 (1.1-4.8); LYMPHOCYTES % (AUTO) 11.5 % (21-51); MEAN CORPUSCULAR HEMOGLOBIN 31.1 PG (27.0-31.0); MEAN CORPUSCULAR HGB CONC 34.3 g/dL (33.0-36.5); MEAN CORPUSCULAR VOLUME 90.5 FL (78-98); MONOCYTES # (AUTO) 0.5 X10'3 (0-0.9); MONOCYTES % (AUTO) 5.2 % (2-12); NEUTROPHILS # (AUTO) 8.6 X10'3 (1.8-7.7); PLATELET COUNT 273 X10'3 (140-440); RED BLOOD COUNT 4.76 X10'6 (4.20-5.60); RED CELL DISTRIBUTION WIDTH 12.7 % (11.5-14.5); WHITE BLOOD COUNT 10.4 X10'3 (4.5-11.0)
[2023-12-13 15:54] LABS: ALANINE AMINOTRANSFERASE 14 U/L (12-78); ALBUMIN 4.4 G/DL (3.4-5.0); ALBUMIN/GLOBULIN RATIO 1.1 (1.1-1.5); ALKALINE PHOSPHATASE 104 IU/L (46-116); ANION GAP 13 (8-16); ASPARTATE AMINO TRANSFERASE 10 U/L (10-37); BILIRUBIN,TOTAL 0.5 MG/DL (0.1-1.0); BLOOD UREA NITROGEN 14 MG/DL (7-18); BUN/CREATININE RATIO 19.7 (10.0-20.0); CALCIUM 9.4 MG/DL (8.5-10.1); CHLORIDE 105 MMOL/L (99-107); CREATININE 0.71 MG/DL (0.40-0.90); GLUCOSE 87 MG/DL (70-104); MAGNESIUM 2.2 MG/DL (1.5-2.4); POTASSIUM 3.3 MMOL/L (3.5-5.1); SODIUM 142 MMOL/L (135-145); TOTAL CARBON DIOXIDE 24.3 MMOL/L (24-32); TOTAL PROTEIN 8.3 G/DL (6.4-8.2); eCRCL 59 ML/MIN; eGFR 85 ML/MIN
[2023-12-13] MEDS: ketorolac tromethamine 15mg/ml inj. IV ONE (15:57)
[2023-12-13] MEDS: metoclopramide 5 mg/ml inj IV ONE (15:59)
[2023-12-13] MEDS: diphenhydrAMINE 50 mg/ml inj IV ONE (16:00)
[2023-12-13] MEDS ORDERED: ONDA8TAB13 PO (16:31)
[2023-12-13] MEDS: HYDROcodone/acetaminophen 10/325mg tab PO ONE (16:36)
[2023-12-13 16:41] LABS: BILIRUBIN,URINE NEGATIVE (Neg); COLOR,URINE YELLOW (Yellow); GLUCOSE, URINE NEGATIVE (Neg); KETONES,URINE 15 mg/dl (Neg); LEUKOCYTE ESTERASE ,URINE NEGATIVE (Neg); NITRITES, URINE NEGATIVE (Neg); OCCULT BLOOD,URINE TRACE-INTACT (Neg); PROTEIN,URINE NEGATIVE (Neg); UROBILINOGEN,URINE 0.2 E.U/dL (0.2-1.0)
[2023-12-13 16:52] VITALS: BP 165/112; PULSE 100; RESP 16; O2SAT 97
[2023-12-13 16:52] LABS: CLARITY,URINE SLIGHTLY CLOUDY (Clear); UA COLLECTION TYPE CLN CATCH MIDSTREAM
[2023-12-13 17:00] LABS: SQUAMOUS EPITHELIAL CELL,UR MANY /LPF (FEW)
[2023-12-13 17:01] LABS: CELLULAR CAST 0-4 /LPF (NEGATIVE); MUCUS STRANDS FEW /LPF (Neg)
[2023-12-13 17:02] LABS: TRANSITIONAL EPI CELLS,URINE FEW /HPF
[2023-12-13 17:04] LABS: RBC,URINE 0-2 /HPF (0-2)
[2023-12-13 17:05] LABS: BACTERIA,URINE NONE SEEN /HPF (Neg)
== END 2023-12-13 16:55 | disposition home or self-care (01) ==
LOC: ER 12:59
DX: R11.10 Vomiting, unspecified (principal); R19.7 Diarrhea, unspecified; Z88.0 Allergy status to penicillin; Z88.2 Allergy status to sulfonamides; Z88.5 Allergy status to narcotic agent; Z88.6 Allergy status to analgesic agent; Z88.8 Allergy status to other drugs, medicaments and biological substances; Z91.018 Allergy to other foods
CPT/HCPCS: 36415; 71045; 80053; 81001; 83605; 83735; 84145; 85025; 87040; 93005; 96361; 96374; 96375; 99285; J1200; J1885; J2765; J7030

== ENCOUNTER 2024-02-23 12:08 | Emergency (ER) | payer OTHER, MEDICARE, MEDICAID ==
[~2024-02-23] VITALS: Ht 149.9 cm; Wt 65.9 kg
[~2024-02-23 12:08] MED LIST changes: +ONDA-243 PO; +ONDA-245 PO; -ONDA4TAB12 PO
[2024-02-23] MEDS: HYDROcodone/acetaminophen 10/325mg tab PO ONE (13:23)
[2024-02-23 14:36] VITALS: BP 94/61; PULSE 69; RESP 16; TEMP 97.8; O2SAT 98
== END 2024-02-23 14:41 | disposition home or self-care (01) ==
LOC: ER 12:09
DX: S16.1XXA Strain of muscle, fascia and tendon at neck level, initial encounter (principal); S39.012A Strain of muscle, fascia and tendon of lower back, initial encounter; F31.9 Bipolar disorder, unspecified; Z88.1 Allergy status to other antibiotic agents; Z91.018 Allergy to other foods; Z88.0 Allergy status to penicillin; Z88.2 Allergy status to sulfonamides; Z91.030 Bee allergy status; Z79.899 Other long term (current) drug therapy; Z79.1 Long term (current) use of non-steroidal anti-inflammatories (NSAID); Z79.2 Long term (current) use of antibiotics; Z98.890 Other specified postprocedural states; Z90.49 Acquired absence of other specified parts of digestive tract; Z90.710 Acquired absence of both cervix and uterus; V49.88XA Car occupant (driver) (passenger) injured in other specified transport accidents, initial encounter; Y93.89 Activity, other specified; Y92.89 Other specified places as the place of occurrence of the external cause; Y99.8 Other external cause status
CPT/HCPCS: 72040; 72100; 99284